=== PATIENT | female | born 1950 | race Caucasian/White ===

== ENCOUNTER 2021-04-04 11:29 | Outpatient (CLI) | payer MEDICARE, BC ==
[2021-04-04 12:41] LABS: Hemoglobin 9.3 g/dL (12.0-15.5)
[2021-04-04 12:54] LABS: Anion Gap 16 mmol/L (10-20); BUN (Urea Nitrogen) 20 mg/dL (9.8-20.1); Calc. Creatinine Clearance 0 mL/min (70-130); Calcium 9.3 mg/dL (7.8-10.44); Carbon Dioxide 24 mmol/L (23-31); Chloride 98 mmol/L (98-107); Glucose 111 mg/dL (83-110); Sodium 135 mmol/L (136-145)
[2021-04-04 13:54] LABS: Potassium 2.8 mmol/L (3.5-5.1)
[2021-04-04 22:50] LABS: SARS-CoV-2 PCR by NAA Not Detected (NotDetected)
== END 2021-04-04 11:30 | disposition home or self-care (01) ==
LOC: LABBT 11:29
PROVIDERS: ATTEND Specialist
DX: Z01.818 Encounter for other preprocedural examination (principal); I78.0 Hereditary hemorrhagic telangiectasia; R04.0 Epistaxis; Z20.822 Contact with and (suspected) exposure to COVID-19
CPT/HCPCS: 80048; 85014; 85018; 93005; U0003; U0005; 93010

== ENCOUNTER 2021-04-07 06:04 | Day surgery (SDC) | payer MEDICARE, BC ==
[2021-04-06 12:03] VITALS: BMI 28.3
[2021-04-07] MEDS ORDERED: AFRIN NASAL MIST 15 ML BOT ONE ×2 (06:53→09:15)
[2021-04-07 07:05] LABS: #Eosinphils 0.1 thou/uL (0.0-0.7); #Lymphocytes 2.1 thou/uL (1.20-3.40); #Monocytes 0.8 thou/uL (0.11-0.59); #Neutrophils 6.9 thou/uL (1.40-6.50); %Basophils 0.5 % (0.0-1.0); %Eosinophils 0.9 % (0.0-10.0); %Lymphocytes 21.3 % (21.0-51.0); %Monocytes 8.1 % (0.0-10.0); %Neutrophils 69.3 % (42.0-75.0); Hemoglobin 9.1 g/dL (12.0-16.0); Mean Corpuscular HGB CONC 31.8 g/dL (32.0-36.0); Mean Corpuscular Hemoglobin 21.6 pg (27.0-31.0); Mean Platelet Volume 8.9 fL (7.4-10.4); Platelet Count 414 thou/uL (130-400); RBC Distribution Width 19.4 % (11.5-14.5)
[2021-04-07 07:16] LABS: Anion Gap 14 mmol/L (10-20); BUN (Urea Nitrogen) 19 mg/dL (9.8-20.1); Calc. Creatinine Clearance 61 mL/min (70-130); Calcium 9.2 mg/dL (7.8-10.44); Carbon Dioxide 24 mmol/L (23-31); Chloride 101 mmol/L (98-107); Glucose 106 mg/dL (83-110); Potassium 3.3 mmol/L (3.5-5.1); Sodium 136 mmol/L (136-145)
[2021-04-07 07:19] LABS: Elliptocytes SLIGHT = 2-5 cells (100X) (0-1/hpf); Hypochromia SLIGHT = 6-15 cells (100X) (0-5/hpf); MDiff Complete? YES; Microcytosis MODERATE=15-30 cells (100X) (0-5/hpf); Ovalocytes SLIGHT = 2-5 cells (100X) (0-1/hpf); Platelet Morphology Comment Appears Increased; Polychromasia SLIGHT = 2-3 cells (100X) (0-2/hpf)
[2021-04-07] MEDS ORDERED: Fentanyl 100 MCG/2 ML VIAL ONE (09:06)
[2021-04-07] MEDS ORDERED: Silver Nitrate Application 1 EACH ONE (09:15)
[2021-04-07] MEDS ORDERED: Lidocaine 1% w/Epinephrine 1:100K 20 ML VIAL ONE (09:15)
[2021-04-07] MEDS ORDERED: Dexamethasone 20 MG/5 ML VIAL ONE (09:50)
[2021-04-07] MEDS ORDERED: Lidocaine 1% PF 5 ML VIAL ONE (09:50)
[2021-04-07] MEDS ORDERED: Ondansetron PF 4 MG/2 ML Vial ONE (09:50)
[2021-04-07] MEDS ORDERED: PHENYLEPHRINE-NS 100 MCG/ML 10 ML SYRINGE ONE (09:50)
[2021-04-07] MEDS ORDERED: PROPOFOL 200 MG/20 ML VIAL ONE (09:50)
[2021-04-07] MEDS ORDERED: EPINEPHrine 1 MG/ML AMP ONE (10:05)
== END 2021-04-07 12:00 | disposition home or self-care (01) ==
LOC: SDC 06:04
PROVIDERS: ATTEND Specialist
PROC: 093K8ZZ Control Bleeding in Nasal Mucosa and Soft Tissue, Via Natural or Artificial Opening Endoscopic (ICD-10-PCS; principal; 2021-04-07)
DX: I78.0 Hereditary hemorrhagic telangiectasia (principal); R04.0 Epistaxis; I10 Essential (primary) hypertension; G43.909 Migraine, unspecified, not intractable, without status migrainosus; K21.9 Gastro-esophageal reflux disease without esophagitis; Z79.2 Long term (current) use of antibiotics; Z79.899 Other long term (current) drug therapy
CPT/HCPCS: 80048; 85025; J0171; J1100; J2405; J2704; J3010

== ENCOUNTER 2023-06-30 00:34 | Inpatient (IN) | payer BC, MEDICARE ==
[2023-06-30 02:36] VITALS: BMI 33.0
[2023-06-30] MEDS ORDERED: Acetaminophen 325 MG TAB PO PRN (03:19)
[2023-06-30] MEDS ORDERED: Ondansetron PF 4 MG/2 ML Vial IVP PRN (03:19)
[2023-06-30] MEDS ORDERED: Ondansetron ODT 4 MG TAB PO PRN (03:19)
[2023-06-30] MEDS ORDERED: Acetaminophen 650 MG Suppository PR PRN (03:19)
[2023-06-30] MEDS ORDERED: SUMATRIPTAN SUCCINATE 6 MG/0.5 ML IM PRN (03:27)
[2023-06-30] MEDS ORDERED: SUMAtriptan Succinate 6 MG/0.5 ML VIAL SC PRN (03:37)
[2023-06-30] MEDS ORDERED: SUMAtriptan Succinate 50 MG TAB PO PRN (04:00)
[2023-06-30 04:55] LABS: #Eosinphils 0.1 thou/uL (0.0-0.7); #Monocytes 0.7 thou/uL (0.11-0.59); #Neutrophils 12.8 thou/uL (1.40-6.50); %Basophils 0.3 % (0.0-1.0); %Eosinophils 0.3 % (0.0-10.0); %Lymphocytes 6.1 % (21.0-51.0); %Monocytes 4.5 % (0.0-10.0); %Neutrophils 88.4 % (42.0-75.0); Hematocrit 34.6 % (36.0-47.0); Hemoglobin 10.9 g/dL (12.0-16.0); Mean Corpuscular HGB CONC 31.5 g/dL (32.0-36.0); Mean Corpuscular Hemoglobin 27.3 pg (27.0-31.0); Mean Corpuscular Volume 86.7 fl (78.0-98.0); Mean Platelet Volume 9.5 fL (7.4-10.4); Platelet Count 350 10x3/uL (130-400); RBC Distribution Width 18.6 % (11.5-14.5); Red Blood Cell (RBC) Count 3.99 mill/uL (4.20-5.40); White Blood Cell (WBC) Count 14.5 10x3/uL (4.8-10.8)
[2023-06-30 05:21] LABS: Anion Gap 9 mmol/L (10-20); BUN (Urea Nitrogen) 24 mg/dL (9.8-20.1); Calc. Creatinine Clearance 62 mL/min (70-130); Calcium 7.5 mg/dL (7.8-10.44); Carbon Dioxide 22 mmol/L (23-31); Chloride 109 mmol/L (98-107); Estimated GFR 55; Glucose 103 mg/dL (83-110); Magnesium 1.8 mg/dL (1.6-2.6); Potassium 3.4 mmol/L (3.5-5.1); Sodium 137 mmol/L (136-145)
[2023-06-30] MEDS: Piperacillin/Tazobactam 3.375 GM in Sodium Chloride 0.9% 100 ML IVPB SCH ×3 (06:27→22:28)
[2023-06-30] MEDS ORDERED: FLU VACC QS2023(65UP)/MF59C/PF 60 MCG/0.5 ML SYRINGE IM ONE (09:00)
[2023-06-30] MEDS: NIFEdipine XL 60 MG ER.TAB PO SCH (10:21)
[2023-06-30] MEDS: Enoxaparin 30 MG (0.3 mL) SYRINGE SC SCH (10:22)
[2023-06-30] MEDS: Topiramate 100 MG TAB PO SCH (10:23)
[2023-06-30] MEDS ORDERED: Potassium Chloride 20 MEQ TAB PO SCH (12:30)
[2023-06-30] MEDS: Mirtazapine 15 MG TAB PO SCH (22:28)
[2023-06-30] MEDS: Temazepam 15 MG CAP PO SCH (22:28)
[2023-07-01] MEDS: Piperacillin/Tazobactam 3.375 GM in Sodium Chloride 0.9% 100 ML IVPB SCH ×3 (05:35→22:41)
[2023-07-01] MEDS: NIFEdipine XL 60 MG ER.TAB PO SCH (10:26)
[2023-07-01] MEDS: Topiramate 100 MG TAB PO SCH (10:27)
[2023-07-01] MEDS: Enoxaparin 30 MG (0.3 mL) SYRINGE SC SCH (10:27)
[2023-07-01] MEDS: Temazepam 15 MG CAP PO SCH (21:27)
[2023-07-01] MEDS: Mirtazapine 15 MG TAB PO SCH (21:27)
[2023-07-02] MEDS: Piperacillin/Tazobactam 3.375 GM in Sodium Chloride 0.9% 100 ML IVPB SCH (06:20)
[2023-07-02 08:04] VITALS: BP 138/65; TEMP 98
[2023-07-02] MEDS: Enoxaparin 30 MG (0.3 mL) SYRINGE SC SCH (08:19)
[2023-07-02] MEDS: NIFEdipine XL 60 MG ER.TAB PO SCH (08:19)
[2023-07-02] MEDS: Topiramate 100 MG TAB PO SCH (08:19)
== END 2023-07-02 10:50 | disposition home or self-care (01) | DRG 872 ==
LOC: 2NO 02:31 → OBSVTOIN 03:19
PROVIDERS: ADMIT Student in an Organized Health Care Education/Training Program; ATTEND Internal Medicine
DX: A41.51 Sepsis due to Escherichia coli [E. coli] (principal); N17.9 Acute kidney failure, unspecified; N39.0 Urinary tract infection, site not specified; I78.0 Hereditary hemorrhagic telangiectasia; R65.20 Severe sepsis without septic shock; I95.1 Orthostatic hypotension; E87.6 Hypokalemia; I10 Essential (primary) hypertension; G43.909 Migraine, unspecified, not intractable, without status migrainosus; Z79.899 Other long term (current) drug therapy; Z91.048 Other nonmedicinal substance allergy status; Z90.49 Acquired absence of other specified parts of digestive tract; Z90.710 Acquired absence of both cervix and uterus
CPT/HCPCS: 36415; 80048; 83735; 85025; J1650; J2543; J3030; J3490